=== PATIENT | female | born 1935 | race Caucasian/White ===

== ENCOUNTER 2019-02-22 11:58 | Emergency (ER) | payer MEDICARE, OTHER, SELFPAY ==
[2019-02-22 12:10] VITALS: PULSE 66; RESP 16; TEMP 36.3; O2SAT 97; BMI 23.0
--- NOTE | 2019-02-22 12:22 | DI.CT.S_ITS ---
PROCEDURE: CT HEAD/BRAIN WO CON INDICATIONS: weakness, fall, right eye droop TECHNIQUE: Noncontrast 4.5 mm thick angled axial sections acquired from the foramen magnum to the vertex, with coronal and sagittal reformats. For radiation dose reduction, the following was used: automated exposure control, adjustment of mA and/or kV according to patient size. COMPARISON: None. FINDINGS: Image quality: Excellent. CSF spaces: Basal cisterns are patent. No extra-axial fluid collections. The ventricles are symmetric in size and shape. Brain: No intracranial bleeds. There is a 2.4 x 1.8 x 2.3 cm calcified right pontine cerebellar angle extra-axial mass. There is cerebral volume loss for age, with resultant ventricular and sulcal prominence. There are periventricular and deep white matter chronic small vessel ischemic changes. 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 There is intracranial internal carotid artery atherosclerosis. Skull and face: Calvarium and visualized facial bones appear intact, without suspicious lesions. Sinuses: Visualized sinuses and mastoids are clear. IMPRESSION: 1. No acute intracranial disease process. 2. No intracranial hemorrhage. 3. No fracture. 4. 2.4 x 1.8 x 2.3 cm right cerebellar pontine angle posterior fossa extra-axial mass with imaging characteristics most compatible with meningioma. Recommend nonemergent MRI of the brain with and without for definitive characterization. Dictated by: Mery Zamora MD, PhD on 02/22/2019 at 13:10 Approved by: Mery Zamora MD, PhD on 02/22/2019 at 13:14
[2019-02-22 13:31] VITALS: BP 132/75; PULSE 70; RESP 17; O2SAT 98
--- NOTE | 2019-02-22 13:32 | PC.NURSE ---
2 failed IV attempts. Able to draw blood on first but not able to thread IV. Bambi BURNETT now trying.
[2019-02-22 13:40] LABS: BUN Creatinine Ratio 17.8 (6-22); Blood Urea Nitrogen 16 mg/dL (7-17); Calcium 9.6 mg/dL (8.4-10.2); Carbon Dioxide 27 mmol/L (22-32); Chloride 106 mmol/L (98-107); Estimated Glomerular Filt Rate 59.8 mL/min (>60); Glucose 98 mg/dL (80-110); HEMOLYSIS 24 (0-50); Potassium 4.1 mmol/L (3.4-5.1); Sodium 141 mmol/L (137-145)
[2019-02-22 13:44] LABS: Add Manual Diff / Slide Review NO; Basophils Absolute Auto 0 /uL (0-100); Basophils Percent Auto 0.6 % (0-2); Eosinophils Absolute Auto 100 /uL (0-450); Eosinophils Percent Auto 1.8 % (2-4); Hemoglobin 14.6 g/dL (12.0-16.0); Lymphocytes Absolute Auto 2800 /uL (1100-4500); Lymphocytes Percent Auto 41.4 % (25-40); Mean Corpuscular HGB Conc 34.7 % (30-36); Mean Corpuscular Hemoglobin 30.5 PG (26-34); Mean Corpuscular Volume 88.1 fL (80-100); Monocytes Absolute Auto 500 /uL (0-900); Monocytes Percent Auto 7.9 % (3-14); Neutrophils Absolute Auto 3200 /uL (1500-7000); Neutrophils Percent Auto 48.3 % (50-75); Platelet Count 288 X10^3/uL (150-400); Red Blood Cell Count 4.77 X10^6/uL (4.0-5.2); Red Cell Distribution Width 14.2 % (11.6-14.8); White Blood Cell Count 6.7 X10^3/uL (4.5-11.0)
[2019-02-22] MEDS: SODIUM CHLORIDE 0.9% 1,000 ML 150 ML IV (13:47)
[2019-02-22 13:51] LABS: PTT Partial Thromboplastin Tim 30 SECONDS (26.4-36.2)
[2019-02-22 13:52] LABS: Troponin I < 0.012 ng/mL (0.01-0.034)
[2019-02-22 13:57] LABS: Prothrombin Time 11.4 SECONDS (10.1-12.7)
--- NOTE | 2019-02-22 14:11 | ED_ITS ---
HPI - Neuro Symptoms/Deficit General Chief Complaint: Neuro Symptoms/Deficit Stated Complaint: stroke Time Seen by Provider: 02/22/19 14:11 Source: patient and family (daughter) Mode of arrival: Ambulatory Limitations: no limitations History of Present Illness HPI Narrative: 83-year-old female comes emergency department with complaint of a presyncopal type episode at home. She said she got up she felt really dizzy this morning. 1 hour later she went to the thermostat she states she didn't pass out but she sort of fell to the floor. She states it was unexpected. Patient states that she did not hit her head. She denies any injuries. She did have any headache, she states her vision felt a little blurry earlier on the right side. No chest pain, no shortness of breath, no nausea, no vomiting, she has bowel movements about 3 times daily states that there's no black or blood. She denies any urinary symptoms. She denies any abdominal pain. 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 She has a history of Alzheimer's. She denies other surgeries. Patient lives in [place] and is r [facility] . On Anticoagulants: Yes (ASA) Related Data Allergies Allergy/AdvReac Type Severity Reaction Status Date / Time morphine Allergy Mild Unresponsiv Verified 02/22/19 12:21 e Review of Systems Review of Systems ROS Unobtainable: All systems reviewed & are unremarkable except as noted in HPI and below Patient History Surgical History Hx of CABG (Acute) Social History Smoking Status: Former smoker Smoking Status: Former smoker Substance Use Type: does not use Exam Narrative Exam Narrative: GEN: well nourished, well appearing thin elderly female, alert and oriented x 3, patient appears to be in no acute distress. HEENT: Atraumatic, pupils are equal round reactive to light, extraocular movements are intact, nares are clear, TMs are clear with no fluid, there is no conjunctival pallor. Throat is clear without any exudates, erythema, tonsillar enlargement or uvular deviation, no facial droop HEART: Regular rate and rhythm without murmur, clicks, rubs. Pulses are equal in upper and lower extremities LUNGS:Lungs clear to auscultation, no wheezes, rales, crackles, chest moves symmetrically ABD:bowel sounds normal, soft, non-tender, no guarding, rebound, rigidity, no masses noted, no hepatosplenomegaly :No CVA tenderness MSCL: Non-tender, no muscle atrophy, muscles strength 5/5 upper and lower extremities, full range of motion, normal gait NEURO:CN 2-12 intact, sensation normal, reflexes 2/4 upper and lower extremiti es. finger nose finger test normal, heel hooks test normal, romberg normal SKIN: No edema. No rash. Initial Vital Signs Initial Vital Signs: Vital Signs Temperature 97.3 F L 02/22/19 12:10 Pulse Rate 66 02/22/19 12:10 Respiratory Rate 16 02/22/19 12:10 Pulse Oximetry 97 02/22/19 12:10 Scores NIH Stroke Scale Level of Conciousness: Alert, keenly responsive Ask month/age: Answers both questions correctly. Open/close eyes, close hand: Performs both tasks correctly Best gaze horizontal: Normal Visual la: No visual loss Facial palsy: Normal symetrical movement Left arm drift: No drift for full 10 sec Right arm drift: No drift for full 10 sec Left leg drift: No drift for full 10 sec Right leg drift: No drift for full 10 sec Limb ataxia: Absent Sensory on face/arms/legs: Normal, no sensory loss Best language: No aphasia, normal Dysarthria: Normal Extinction or inattention: No abnormality Total NIH Stroke scale score: 0 Course Orders Ordered: ED Orders 02/22/19 12:22 CT head/brain wo con Stat 02/22/19 13:12 EKG-12 Lead Stat 02/22/19 13:15 Basic Metabolic Panel Stat Complete Blood Count AUTO DIFF Stat Partial Thromboplastin Time Stat Prothrombin Time INR Stat Troponin I Stat 02/22/19 14:46 XR chest 1V Stat Discontinued Medications Sodium Chloride (Normal Saline 0.9%) 1,000 mls @ 150 mls/hr IV CONT KAI Last Infusion: 02/22/19 15:25 Dose: 0 mls/hr Documented by: Admin: 02/22/19 13:47 Dose: 150 mls/hr Documented by: CRISTIN Vital Signs Vital signs: Vital Signs - 8 hr 02/22/19 12:10 02/22/19 13:31 02/22/19 15:04 Temperature 97.3 F L Pulse Rate 66 70 64 Respiratory Rate 16 17 15 Blood Pressure [Right Arm] 132/75 131/77 Pulse Oximetry 97 98 95 MDM - Neuro Symptoms/Deficit Lab Data Attestation: I reviewed the patient's lab results. Result diagrams: 02/22/19 13:15 02/22/19 13:15 Labs: Lab Results 02/22/19 02/22/19 02/22/19 Range/Units 13:15 13:15 13:15 WBC 6.7 (4.5-11.0) X10^3/uL RBC 4.77 (4.0-5.2) X10^6/uL Hgb 14.6 (12.0-16.0) g/dL Hct 42.0 (36-46) % MCV 88.1 (80-100) fL MCH 30.5 (26-34) PG MCHC 34.7 (30-36) % RDW 14.2 (11.6-14.8) % Plt Count 288 (150-400) X10^3/uL Neut % (Auto) 48.3 L (50-75) % Lymph % (Auto) 41.4 H (25-40) % Phillips % (Auto) 7.9 (3-14) % Eos % (Auto) 1.8 L (2-4) % Baso % (Auto) 0.6 (0-2) % Neut # (Auto) 3200 (9760-1435) /uL Lymph # (Auto) 2800 (9901-2115) /uL Phillips # (Auto) 500 (0-900) /uL Eos # (Auto) 100 (0-450) /uL Baso # (Auto) 0 (0-100) /uL PT 11.4 (10.1-12.7) SECONDS INR 1.0 (0.9-1.3) APTT 30 (26.4-36.2) SECONDS Sodium 141 (137-145) mmol/L Potassium 4.1 (3.4-5.1) mmol/L Chloride 106 (98-107) mmol/L Carbon Dioxide 27 (22-32) mmol/L BUN 16 (7-17) mg/dL Creatinine 0.90 (0.52-1.04) mg/dL Estimated GFR 59.8 L (>60) mL/min BUN/Creatinine Ratio 17.8 (6-22) Glucose 98 (80-110) mg/dL Calcium 9.6 (8.4-10.2) mg/dL Troponin I < 0.012 (0.01-0.034) ng/mL Urine Dip Bedside Urine Glucose Negative Bedside Urine Bilirubin - Negative Bedside Urine Ketone - Negative Urine Specific [place] 1.010 Bedside Urine Occult Blood - Negative Bedside Urine pH 6.0 Bedside Urine Protein - Negative Bedside Urine Urobilinogen - Negative Bedside Urine Nitrite - Negative Bedside Urine Leukocytes - Negative Esterase Imaging Data CT scan - head: Radiologist's impression: [address] [address] [address] Scan Report Signed Patient: Jasmyne Shah BMR#: [id number] : 6Acct:[id number] Age/Sex: 83 / FDate of Service: 02/22/19 Loc: ED Accession Number: [id number] Procedure: CT head/brain wo con Ordering Provider: Amelia Hernández D.O. PROCEDURE: CT HEAD/BRAIN WO CON INDICATIONS: weakness, fall, right eye droop TECHNIQUE: Noncontrast 4.5 mm thick angled axial sections acquired from the foramen magnum to the vertex, with coronal and sagittal reformats. For radiation dose reduction, the following was used: automated exposure control, adjustment of mA and/or kV according to patient size. COMPARISON: None. FINDINGS: Image quality: Excellent. CSF spaces: Basal cisterns are patent. No extra-axial fluid collections. The ventricles are symmetric in size and shape. Brain: No intracranial bleeds. There is a 2.4 x 1.8 x 2.3 cm calcified right pontine cerebellar angle extra-axial mass. There is cerebral volume loss for age, with resultant ventricular and sulcal prominence. There are periventricular and deep white matter chronic small vessel ischemic changes. 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 There is intracranial internal carotid artery atherosclerosis. Skull and face: Calvarium and visualized facial bones appear intact, without suspicious lesions. Sinuses: Visualized sinuses and mastoids are clear. IMPRESSION: 1. No acute intracranial disease process. 2. No intracranial hemorrhage. 3. No fracture. 4. 2.4 x 1.8 x 2.3 cm right cerebellar pontine angle posterior fossa extra-axial mass with imaging characteristics most compatible with meningioma. Recommend nonemergent MRI of the brain with and without for definitive characterization. Dictated by: Mery Zamora MD, PhD on 02/22/2019 at 13:10 Approved by: Mery Zamora MD, PhD on 02/22/2019 at 13:14 Chest x-ray: My impression: nap Radiologist's impression: [address] [address] XRay Report Signed Patient: Jasmyne Shah BMR#: [id number] : 1936Acct:[id number] Age/Sex: 83 / FDate of Service: 02/22/19 Loc: ED Accession Number: [id number] Procedure: XR chest 1V Ordering Provider: Amelia Hernández D.O. PROCEDURE: XR CHEST 1V INDICATIONS: pre-syncope TECHNIQUE: One view of the chest was acquired. COMPARISON: None. FINDINGS: Surgical changes and devices: Median sternotomy changes are present, likely related to prior coronary artery revascularization. Lungs and pleura: Lungs are clear. No pleural effusions or pneumothorax. Mediastinum: Mediastinal contours appear normal. Heart size is normal. There is aortic atherosclerosis. Bones and chest wall: No suspicious bony lesions. Overlying soft tissues appear unremarkable. IMPRESSION: Negative chest. No acute cardiopulmonary process is evident. Dictated by: Fabrizio Harrison M.D. on 02/22/2019 at 14:10 Approved by: Fabrizio Harrison M.D. on 02/22/2019 at 14:11 ECG Data Attestation: I personally reviewed and interpreted this ECG as follows: Prior ECG tracings: not available for review Interpretation: Sinus bradycardia with marked sinus arrhythmia, rate of 50 P are 164 QRS is 79 and QTC of 448. No acute ST changes appreciated. No prior available. MDM Narrative Medical decision making narrative: sounds like a near syncopal episode at home today. While they were driving around patient's daughter states that her she finally told her about the episode and then when she looked at her mother she appreciated maybe some droop of her right eye. She states that it isn't there anymore. She states she couldn't see the rest of her face to tell if there was any droop of the lower face but she had no dysarthria or speech changes. Patient does have a spot on her head CT which she states she thinks she has been told about in the past, she was given imaging as her primary care is in [place]. Lab work does not show any major changes. NIH scale is 0. We discussed that there's potential that patient could had a TIA although if it was just droop at the eye this would be less likely, patient would like to return home and does not wish to be hospitalized. Patient was encouraged to continue her home medications including blood thinners. She is supposed to return to [place] on March 09 and was asked to contact her primary care to follow-up. Discharge Plan Departure Patient Disposition: Home Clinical Impression: Pre-syncope Discharge Date/Time: 02/22/19 15:26 Instructions: DI for Syncope in Adults (Fainting) Activity Restrictions/Additional Instructions: Follow-up with primary care next week for recheck. There is potential that you may have had a TIA today. I would recommend short- term follow-up with your physician for repeat evaluation. Your CT does show a mass in the right cerebellar region. It appears likely to be a meningioma but would recommend nonemergent MRI of the brain with and without contrast for further definition. Continue your home medications as prescribed. Return to the emergency department for fevers greater 100.4 F, altered mental status, new confusion, new facial droop, difficulty with speech, chest pain, shortness of breath, new weakness numbness or other new or concerning symptoms.
--- NOTE | 2019-02-22 14:46 | DI.RAD.S_ITS ---
PROCEDURE: XR CHEST 1V INDICATIONS: pre-syncope TECHNIQUE: One view of the chest was acquired. COMPARISON: None. FINDINGS: Surgical changes and devices: Median sternotomy changes are present, likely related to prior coronary artery revascularization. Lungs and pleura: Lungs are clear. No pleural effusions or pneumothorax. Mediastinum: Mediastinal contours appear normal. Heart size is normal. There is aortic atherosclerosis. Bones and chest wall: No suspicious bony lesions. Overlying soft tissues appear unremarkable. IMPRESSION: Negative chest. No acute cardiopulmonary process is evident. Dictated by: Fabrizio Harrison M.D. on 02/22/2019 at 14:10 Approved by: Fabrizio Harrison M.D. on 02/22/2019 at 14:11
[2019-02-22 15:04] VITALS: BP 131/77; PULSE 64; RESP 15; O2SAT 95
== END 2019-02-22 15:26 | disposition home or self-care (01) ==
PROVIDERS: Emergency Provider Emergency Medicine
DX: R55 Syncope and collapse (principal); R00.1 Bradycardia, unspecified; R29.810 Facial weakness
CPT/HCPCS: 70450; 71045; 80048; 81003; 84484; 85025; 85610; 85730; 93005; 93010; 99285